=== PATIENT | male | born 1975 | race Hispanic/Latino ===

== ENCOUNTER → 2018-08-23 | Outpatient (CLI) | payer OTHER ==
--- NOTE | 2018-08-23 17:31 | Diagnostic Imaging Report ---
EXAM: Scrotal Ultrasound with Duplex INDICATION: ^LARGE MASS LEFT TESTICLE. History of hernia surgery. COMPARISON: None TECHNIQUE: Transverse and longitudinal images were obtained of the scrotum with grayscale imaging, color Doppler and spectral waveform analysis. FINDINGS: Right testis: Size: 4.7 x 2.2 x 3.4 cm, normal in size. Echogenicity: Normal Mass/Cysts: None Left testis: Size: 4.3 x 0.9 x 2.7 cm, small in size. Echogenicity: Mildly heterogeneous. Mass/Cysts: None Epididymis: Appearance: Normal in size without increased vascularity. Right epididymis is normal. Left epididymis is not visualized. Mass/Cysts: None Extratesticular: Masses: None Hydrocele: None Varicocele: Mild to the left varicocele Doppler: Normal arterial flow 4 cm/s and normal venous flow to the right testicle. Increase arterial flow with increased resistance (6 cm/s) were normal venous waveform in the left testicle. No evidence of testicular torsion. IMPRESSION: 1. No evidence of testicular torsion. 2. Normal right testicle. 3. Left testicle is small and heterogeneous with increasing high resistance waveforms, likely from previous torsion or undescended testes was that fixed. 4. According to the technologist note, the left testicle is enlarged and swollen, displaced, possible hydrocele. However, based on these images provided the left testicle appears to be slightly superiorly and anteriorly displaced with a large echogenic lesion with shadowing posteriorly. This suggests possible bowel containing inguinal hernia. Recommend CT abdomen pelvis with IV and positive oral contrast for further evaluation. Signed by: Dr. Enmanuel Preciado M.D. on 08/23/2018 5:27 PM
== END ==
LOC: US 14:07
PROVIDERS: ATTEND Surgery
DX: N50.89 Other specified disorders of the male genital organs (principal)
CPT/HCPCS: 76870; 93976

== ENCOUNTER → 2018-09-09 | Outpatient (CLI) | payer OTHER ==
[~2018-09-09] MED LIST: IOPAMIDOL 370 MG/ML 200 ML INFUS..BTL INJ ONE; SODIUM CHLORIDE 0.9% 50ML 50 ML ONE
[2018-09-09 08:25] LABS: BLOOD UREA NITROGEN 20 mg/dL (7-26); BUN/CREATININE RATIO 19 (6-25); CREATININE, SERUM 1.04 mg/dL (0.72-1.25); EST GLOMERULAR FILTRATION RATE > 60 ML/MIN (60-)
--- NOTE | 2018-09-09 13:40 | Diagnostic Imaging Report ---
EXAM: CT PELVIS with IV CONTRAST DATE: 09/09/2018 Time stamp on Exam: 9:22 AM INDICATION: Testicular mass COMPARISON: Ultrasound dated 08/23/2018 TECHNIQUE: The pelvis was scanned using a multidetector helical scanner. Coronal and sagittal reformations were obtained. Routine protocol performed. Technique modulation was performed to maintain the lowest dose to the patient. IV Contrast: 100 cc of Isovue-370 Oral Contrast: None Radiation Dose: Total DLP 420.04 mGy*cm Estimated effective dose: DLP x 0.015 x size factor FINDINGS: GI TRACT: No distention, wall thickening or evidence of obstruction. There are diverticula within the sigmoid colon. VESSELS: Unremarkable PERITONEUM/RETROPERITONEUM: No free air or fluid LYMPH NODES: No lymphadenopathy REPRODUCTIVE ORGANS: There is a large rim calcified solid mass with some areas of central necrosis involving the left testicle measuring 7.0 x 6.6 x 7.3 cm. Differential includes calcified epidermoid, teratoma or thecoma/fibroma. BLADDER: Unremarkable SOFT TISSUES: There is no evidence of an inguinal hernia. BONES: No suspicious bone lesions. IMPRESSION: Large peripherally calcified solid left testicular mass. Signed by: Dr. Hugo Quezada DO on 09/09/2018 1:37 PM
== END ==
LOC: CT 07:34
PROVIDERS: ATTEND Surgery
DX: N50.89 Other specified disorders of the male genital organs (principal)
CPT/HCPCS: 36415; 72193; 82565; 84520; Q9967

== ENCOUNTER → 2018-10-02 | Day surgery (SDC) | payer OTHER ==
--- NOTE | 2018-09-27 15:24 | Diagnostic Imaging Report ---
EXAMINATION: PA and lateral views of the chest. COMPARISON: None CLINICAL HISTORY: Preop for scrotal mass DISCUSSION: Lines/tubes: None. Lungs: The lungs are well inflated and clear. There is no evidence of pneumonia or pulmonary edema. Pleura: There is no pleural effusion or pneumothorax. Heart and mediastinum: Cardiomediastinal silhouette is unremarkable. Pulmonary vasculature is normal. Bones and soft tissues: No acute bony abnormalities. Degenerative changes in the thoracic spine IMPRESSION: No acute cardiopulmonary abnormalities. Signed by: Dr. Ronald Smith M.D. on 09/27/2018 3:20 PM
[~2018-10-02] MED LIST changes: +BUPIVACAINE 0.25% 30ML SDV INJ ONE; +BUPIVACAINE 0.25%/EPI 30ML SDV INJ ONE; +CEFAZOLIN SOD 1 GM VIAL ONE; +CEFAZOLIN SOD 1 GM/NS 50ML 50 ML IV ONE; +DEXAMETHASONE SOD PHOS INJ 4 MG/ML VIAL ONE; +FENTANYL CITRATE/PF 100MCG/2 ML INJ ONE; +HUMALOG100 UNIT/3 SC; -IOPAMIDOL 370 MG/ML 200 ML INFUS..BTL INJ ONE; +LIDOCAINE HCL 2% LOCAL INJ 5 ML SDV VIAL INJ ONE; +LISINOPRIL10 MG PO; +METFORMIN HCL500 MG PO; +MIDAZOLAM HCL 2 MG/2 ML VIAL ONE; +MORPHINE SULFATE INJ 10 MG/ML ONE; +NAPROXEN250 MG PO; +ONDANSETRON HCL INJ 2MG/ML 2ML 2 MG/ML VIAL ONE; +PROPOFOL IV EMULSION 10 MG/ML 20 ML VIAL ONE; +SEVOFLURANE INHAL SOLN 250 ML PEN BTL ONE; -SODIUM CHLORIDE 0.9% 50ML 50 ML ONE; +TOUJEO SC
--- OUTSIDE RECORDS SUMMARY | 2018-10-02 08:24 | XMS REPORT ---
Author Author [facility] Address Unknown Phone Unavailable Care Team Providers Care Junior Paralegal Name Role Phone NEAL BARROW Unavailable Unavailable Leandra PACK Unavailable Unavailable Problems This patient has no known problems. Allergies, Adverse Reactions, Alerts This patient has no known allergies or adverse reactions. Medications This patient has no known medications. Results Test Description Test Time Test Comments Text Results Atomic Results Result Comments CHEST 2 VIEWS 2018-09-27 15:20:00 [place] [address] Patient Name: BRIAN WEI MR #: [id number] : 1975 Age/Sex: 43/M Req #: [id number] Adm Physician: Ordered by: NEAL BARROW MD Report #: [id number] Location: OR Room/Bed: Procedure: [id number] DX/CHEST 2 VIEWS Exam Date: 09/27/18 Exam Time: 1455 REPORT STATUS: Signed EXAMINATION: PA and lateral views of the chest. COMPARISON: None CLINICAL HISTORY: Preop for scrotal mass DISCUSSION: Lines/tubes: None. Lungs: The lungs are well inflated and clear. There is no evidence of pneumonia or pulmonary edema. Pleura: There is no pleural effusion or pneumothorax. Heart and mediastinum: Cardiomediastinal silhouette is unremarkable. Pulmonary vasculature is normal. Bones and soft tissues: No acute bony abnormalities. Degenerative changes in the thoracic spine IMPRESSION: No acute cardiopulmonary abnormalities. Signed by: Dr. Mio Smith M.D. on 3:20 PM Dictated By: MIO SMITH MD 1520 Transcribed By: DARYL on 09/27/18 1520 COPY TO: NEAL BARROW MD CT PELVIS W 2018-09-09 13:24:00 [place] [address] Patient Name: BRIAN WEI MR #: [id number] : 1975 Age/Sex: 43/M Req #: [id number] [facility] Physician: Ordered by: MARYBEL PACK MD Report #: [id number] Location: CT Room/Bed: Procedure: [id number] CT/CT PELVIS W Exam Date: 09/09/18 Exam Time: 919 REPORT STATUS: Signed EXAM: CT PELVIS with IV CONTRAST DATE: 09/09/2018 Time stamp on Exam: 9:22 AM INDICATION: Testicular mass COMPARISON: Ultrasound dated 08/23/2018 TECHNIQUE: The pelvis was scanned using a multidetector helical scanner. Coronal and sagittal reformations were obtained. Routine protocol performed. Technique modulation was performed to maintain the lowest dose to the patient. IV Contrast: 100 cc of Isovue-370 Oral Contrast: None Radiation Dose: Total DLP 420.04 mGy*cm Estimated effective dose: DLP x 0.015 x size factor FINDINGS: GI TRACT: No distention, wall thickening or evidence of obstruction. There are diverticula within the sigmoid colon. VESSELS: Unremarkable PERITONEUM/RETROPERITONEUM: No free air or fluid LYMPH NODES: No lymphadenopathy REPRODUCTIVE ORGANS: There is a large rim calcified solid mass with some areas of central necrosis involving the left testicle measuring 7.0 x 6.6 x 7.3 cm. Differential includes calcified epidermoid, teratoma or thecoma/fibroma. BLADDER: Unremarkable SOFT T ISSUES: There is no evidence of an inguinal hernia. BONES: No suspicious bone lesions. IMPRESSION: Large peripherally calcified solid left testicular mass. Signed by: Dr. Irena Quezada DO on 09/09/2018 1:37 PM Dictated By: IRENA QUEZADA DO 36 Transcribed By: DARYL on 09/09/181 COPY TO: MARYBEL PACK MD US TESTICULAR DOPPLER LTD 2018-08-23 17:18:00 [place] [address] Patient Name: BRIAN WEI MR #: [id number] : 1975 Age/Sex: 42/M Req #: [id number] Adm Physician: Ordered by: MARYBEL PACK MD Report #: [id number] Location: Room/Bed: Procedure: [id number] US/US TESTICULAR DOPPLER LTD Exam Date: 08/23/18 Exam Time: 1435 REPORT STATUS: Signed EXAM: Scrotal Ultrasound with Duplex INDICATION: LARGE MASS LEFT TESTICLE. History of hernia surgery. COMPARISON: None TECHNIQUE: Transverse and longitudinal images were obtained of the scrotum with grayscale imaging, color Doppler and spectral waveform analysis. FINDINGS: Right testis: Size: 4.7 x 2.2 x 3.4 cm, normal in size. Echogenicity: Normal Mass/Cysts: None Left testis: Size: 4.3 x 0.9 x 2.7 cm, small in size. Echogenicity: Mildly heterogeneous. Mass/Cysts: None Epididymis: Appearance: Normal in size without increased vascularity. Right epididymis is normal. Left epididymis is not visualized. Mass/Cysts: None Extratesticular: Masses: None Hydrocele: None Varicocele: Mild to the left varicocele Doppler: Normal arterial flow 4 cm/s and normal venous flow to the right testicle. Increase arterial flow with increased resistance (6 cm/s) were normal venous waveform in the left testicle. No evidence of testicular torsion. IMPRESSION: 1. No evidence of testicular torsion. 2. Normal right testicle. 3. Left testicle is small and heterogeneous with increasing high resistance waveforms, likely from previous torsion or undescended testes was that fixed. 4. According to the technologist note, the left testicle is enlarged and swollen, displaced, possible hydrocele. However, based on these images provided the left testicle appears to be slightly superiorly and anteriorly displaced with a large echogenic lesion with shadowing posteriorly. This suggests possible bowel containing inguinal hernia. Recommend CT abdomen pelvis with IV and positive oral contrast for further evaluation. Signed by: Dr. Rai Hunt M.D. on 08/23/2018 5:27 PM Dictated By: RAI HUNT MD 26 Transcribed By: DARYL on 08/23/181726 COPY TO: MARYBEL PACK MD TESTICULAR 2018-08-23 17:18:00 [place] [address] Patient Name: BRIAN WEI MR #: [id number] : 1975 Age/Sex: 42/M Req #: [id number] Adm Physician: Ordered by: MARYBEL PACK MD Report #: [id number] Location: Room/Bed: Procedure: [id number] US/US TESTICULAR Exam Date: 08/23/18 Exam Time: 1435 REPORT STATUS: Signed EXAM: Scrotal Ultrasound with Duplex INDICATION: L ARGE MASS LEFT TESTICLE. History of hernia surgery. COMPARISON: None TECHNIQUE: Transverse and longitudinal images were obtained of the scrotum with grayscale imaging, color Doppler and spectral waveform analysis. FINDINGS: Right testis: Size: 4.7 x 2.2 x 3.4 cm, normal in size. Echogenicity: Normal Mass/Cysts: None Left testis: Size: 4.3 x 0.9 x 2.7 cm, small in size. Echogenicity: Mildly heterogeneous. Mass/Cysts: None Epididymis: Appearance: Normal in size without increased vascularity. Right epididymis is normal. Left epididymis is not visualized. Mass/Cysts: None Extratesticular: Masses: None Hydrocele: None Varicocele: Mild to the left varicocele Doppler: Normal arterial flow 4 cm/s and normal venous flow to the right testicle. Increase arterial flow with increased resistance (6 cm/s) were normal venous waveform in the left testicle. No evidence of testicular torsion.
[2018-10-02 13:50] VITALS: BP 160/92
--- NOTE | 2018-10-30 05:47 | Operative Report ---
DATE OF PROCEDURE: 10/02/2018 SURGEON: Joseph Vanegas MD PREOPERATIVE DIAGNOSIS: Left large testicular mass. POSTOPERATIVE DIAGNOSIS: Left large testicular mass. OPERATION PERFORMED: 1. Left radical (inguinal) orchiectomy. 2. Regional nerve block (separate procedure performed for postoperative pain control and not required for the actual performance of surgery, which is done under general anesthesia). ANESTHESIA: General. COMPLICATIONS: None. CHEESEMAKING LABORER: Yong Vanegas MD. CLINICAL SUMMARY: Milo Encarnacion is a 43-year-old male with a large left scrotal mass. This mass is in way and hard and firm and highly suspicious. The only nonsuspicious aspect of this mass is the fact that by history it has been there for a long time. The patient understands the risks of bleeding, infection, injury to adjacent structures, hypogonadism, need for testosterone replacement therapy, need for additional procedures, and the potential for advanced cancer that cannot be cured. The patient understood these risks and elected to proceed. OPERATIVE PROCEDURE IN DETAIL: Informed consent was verified. Milo Encarnacion was properly identified, taken to the operating room, placed on the operating table in supine position. Anesthesia was uneventfully begun. The patient's genitalia and abdomen were shaved, prepared, and draped in usual sterile fashion. A left inguinal incision was made, carried through all layers of the abdominal wall until we reached the level of the spermatic cord. We isolated the spermatic cord, which hooked off with the Edilberto drain. We then proceeded with dissecting this mass out of the scrotum. This mass was hard, very large, and extremely unusual. Once the mass and testis on block were removed and loosened from the patient's left hemiscrotum, the spermatic cord was ligated in several bundles utilizing heavy Vicryl ties both in suture ligature as well as freehand tie. We then divided the spermatic cord, sent the specimen off the field for histopathological analysis. Marcaine was then utilized to infiltrate the spermatic cord. This regional block was performed for postoperative pain control and not required for the actual performance of the surgery, which was done under general anesthesia. We then infiltrated circumferentially around the incision. Copious irrigation was performed, we verified hemostasis. The patient's incision was then approximated in multiple layers, copiously irrigating the each layer of the closure. Sterile dressings were applied. The patient was uneventfully reversed from anesthesia and taken to recovery room in stable condition. There were no complications during the procedure. The patient tolerated the procedure well. Sponge, needle, and instrument counts were of course correct x2 at the end of the case. Estimated blood loss was minimal. Expressive postop instructions were given, we will follow the patient up in the office. MD KENYA Gregg/BRI /[id number]
== END | disposition home or self-care (01) ==
LOC: OR 08:21
PROVIDERS: ATTEND Urology
DX: D17.6 Benign lipomatous neoplasm of spermatic cord (principal); E66.9 Obesity, unspecified; N47.1 Phimosis; N52.9 Male erectile dysfunction, unspecified; Z01.810 Encounter for preprocedural cardiovascular examination; Z01.811 Encounter for preprocedural respiratory examination; E11.9 Type 2 diabetes mellitus without complications; F41.9 Anxiety disorder, unspecified; Z79.84 Long term (current) use of oral hypoglycemic drugs
CPT/HCPCS: 36415; 54530; 64450; 71046; 82948; 88307; 88311; 93005; J0690 ×2; J1100; J2001; J2250; J2270; J2405; J2704; 88302